=== PATIENT | female | born 1965 | race African-American/Black ===

== ENCOUNTER 2021-01-16 18:03 | Emergency (ER) | payer SELFPAY ==
[~2021-01-16] VITALS: Ht 170.2 cm; Wt 77.0 kg
[2021-01-16 18:21] VITALS: BP 165/95
== END 2021-01-16 19:00 | disposition home or self-care (01) ==
LOC: ER 18:03
DX: Z00.00 Encounter for general adult medical examination without abnormal findings (principal)
CPT/HCPCS: 99281

== ENCOUNTER 2025-11-12 13:37 | Emergency (ER) | payer OTHER ==
[~2025-11-12] VITALS: Ht 172.7 cm; Wt 80.0 kg
[2025-11-12 13:44] VITALS: O2SAT 100
[2025-11-12] MEDS: KETOROLAC 30MG/ML VIAL IM ONE (15:48)
[2025-11-12] MEDS: LIDOCAINE 5% PATCH TOP SCH (15:48)
[2025-11-12] MEDS ORDERED: ACET-2708 MT (16:01)
[2025-11-12] MEDS ORDERED: LIDO-53 TP (16:01)
[2025-11-12 16:31] VITALS: BP 153/76; PULSE 61; RESP 16; TEMP 37.1; O2SAT 100
== END 2025-11-12 16:33 | disposition home or self-care (01) ==
LOC: ER 13:37
DX: M54.9 Dorsalgia, unspecified (principal); I10 Essential (primary) hypertension; Z79.899 Other long term (current) drug therapy
CPT/HCPCS: 99284; 71045; 72220; 96372; J1885